=== PATIENT | female | born 1970 | race Native Hawaiian/Other Pacific Islander ===

== ENCOUNTER 2016-10-22 17:48 | Outpatient (CLI) | payer OTHER ==
[~2016-10-22 17:48] MED LIST: CARAFATE1 GM PO; DOXYCYC MONO100 M1 OR; GABA100C2 PO; LORA10TA3 PO; METR250T19 PO; OXYC5TAB53 PO; PANT40TA PO; PERCOCET1 TA4 PO; PHENELX32; POTASSIUM CHLO10 ME2 PO; PROAIR HFA IN; REQUIP1 MG PO; Z-PAK PO
== END 2016-10-22 19:52 | disposition home or self-care (01) ==
LOC: RAD 17:48
DX: M79.671 Pain in right foot (principal)

== ENCOUNTER 2016-11-27 06:57 | Emergency (ER) | payer OTHER ==
[~2016-11-27] VITALS: Ht 172.7 cm; Wt 45.4 kg
[2016-11-27] MEDS ORDERED: TRAM50TA PO (07:06)
[2016-11-27 07:42] LABS: PLATELET COUNT 271 K/uL (152-353)
[2016-11-27 07:59] LABS: POTASSIUM 3.8 mmol/L (3.6-5.2); SODIUM 140 mmol/L (136-145)
[2016-11-27 08:21] VITALS: BP 90/50; TEMP 97.9
== END 2016-11-27 08:23 | disposition home or self-care (01) ==
LOC: ED 06:57
DX: I10 Essential (primary) hypertension (principal); R51 Headache
CPT/HCPCS: 80053; 80307; 81000; 85027; 96372; 99283; G0479; J1885

== ENCOUNTER 2017-02-05 14:53 | Emergency (ER) | payer OTHER ==
[~2017-02-05] VITALS: Ht 172.7 cm; Wt 45.4 kg
[~2017-02-05 14:53] MED LIST changes: +TRAM50TA PO
[2017-02-05 16:05] LABS: PLATELET COUNT 281 K/uL (152-353)
[2017-02-05 16:21] LABS: POTASSIUM 3.1 mmol/L (3.6-5.2); SODIUM 140 mmol/L (136-145)
[2017-02-05 17:30] VITALS: BP 90/54; TEMP 98
== END 2017-02-05 17:30 | disposition home or self-care (01) ==
LOC: ED 14:53
PROVIDERS: Emergency Medicine
DX: I10 Essential (primary) hypertension (principal)
CPT/HCPCS: 36415; 80053; 81000; 85027; 99283

== ENCOUNTER 2017-08-10 19:07 | Emergency (ER) | payer OTHER ==
[~2017-08-10] VITALS: Ht 172.7 cm; Wt 46.3 kg
[2017-08-10 19:20] VITALS: BP 132/79; TEMP 98.6
== END 2017-08-10 19:27 | disposition home or self-care (01) ==
LOC: ED 19:07
DX: K08.89 Other specified disorders of teeth and supporting structures (principal)

== ENCOUNTER 2017-10-06 13:25 | Emergency (ER) | payer OTHER ==
[~2017-10-06] VITALS: Ht 172.7 cm; Wt 46.3 kg
[2017-10-06 13:29] VITALS: TEMP 97.6
[2017-10-06] MEDS ORDERED: TRAM50TA PO (13:40)
[2017-10-06] MEDS ORDERED: GABA300C2 PO (13:40)
[2017-10-06 14:31] LABS: PLATELET COUNT 296 K/uL (152-353)
[2017-10-06 14:48] LABS: PARTIAL THROMBOPLASTIN TIME 24.3 SECONDS (24.5-33.6)
[2017-10-06 17:47] VITALS: BP 174/69
== END 2017-10-06 17:47 | disposition home or self-care (01) ==
LOC: ED 13:25
PROVIDERS: Emergency Medicine
DX: F12.10 Cannabis abuse, uncomplicated (principal); N83.299 Other ovarian cyst, unspecified side; R10.84 Generalized abdominal pain
CPT/HCPCS: 36415; 80053; 80307; 81000; 81025; 82150; 82272; 83690; 85027; 85610; 85730; 96374; 99284; J1885; J2405; Q9963

== ENCOUNTER 2018-04-21 17:38 | Emergency (ER) | payer OTHER ==
[~2018-04-21] VITALS: Ht 175.3 cm; Wt 45.4 kg
[~2018-04-21 17:38] MED LIST changes: +GABA300C2 PO
[2018-04-21 18:48] LABS: PLATELET COUNT 296 K/uL (152-353)
[2018-04-21 18:53] LABS: POTASSIUM 4.3 mmol/L (3.6-5.2)
[2018-04-21 22:07] VITALS: BP 135/74; TEMP 97.5
== END 2018-04-21 22:07 | disposition home or self-care (01) ==
LOC: ED 17:38
DX: R10.13 Epigastric pain (principal); R11.2 Nausea with vomiting, unspecified
CPT/HCPCS: 36415; 80053; 81000; 82150; 83690; 85027; 96361; 96365; 96374; 96375; 96376; 99284; J2175; J2405; J2550; Q9963

== ENCOUNTER 2018-04-25 17:43 | Emergency (ER) | payer OTHER ==
[~2018-04-25] VITALS: Ht 172.7 cm; Wt 43.5 kg
[2018-04-25 18:37] LABS: PLATELET COUNT 278 K/uL (152-353)
[2018-04-25 18:46] LABS: POTASSIUM 3.5 mmol/L (3.6-5.2)
[2018-04-25 20:45] VITALS: BP 128/76; TEMP 98
== END 2018-04-25 20:45 | disposition home or self-care (01) ==
LOC: ED 17:43
DX: R10.13 Epigastric pain (principal); F12.10 Cannabis abuse, uncomplicated
CPT/HCPCS: 80053; 80307; 81000; 85027; 96374; 96375; 99284; J1885; J2550

== ENCOUNTER 2018-04-28 17:46 | Observation (INO) | payer OTHER ==
[~2018-04-28] VITALS: Ht 172.7 cm; Wt 46.1 kg
[2018-04-28 18:39] LABS: PLATELET COUNT 295 K/uL (152-353)
[2018-04-28 18:47] VITALS: BP 153/68; TEMP 98.6; Ht 172.7 cm; Wt 46.1 kg
[2018-04-28 18:53] LABS: POTASSIUM 3.2 mmol/L (3.6-5.2)
[2018-04-29] VITALS: BP 163/93; TEMP 98.5
[2018-04-29 04:00] VITALS: BP 141/72; TEMP 98.1
[2018-04-29 08:17] VITALS: BP 146/82; TEMP 99.3
[2018-04-29 12:17] VITALS: BP 142/80; TEMP 97.7
== END 2018-04-29 14:55 | disposition home or self-care (01) ==
LOC: MED/SURG 17:46
PROVIDERS: ADMIT Student in an Organized Health Care Education/Training Program
PROC: 0FT44ZZ Resection of Gallbladder, Percutaneous Endoscopic Approach (ICD-10-PCS; principal; 2018-04-29)
DX: K82.8 Other specified diseases of gallbladder (principal)
CPT/HCPCS: 80053; 83690; 85027; 96365; 96366; 96374; 96375; 99220; G0378; G0379; J0132; J0330; J1100; J1170; J1644; J1956; J2001; J2175; J2250; J2405; J2550; J2704; J3010; J3490

== ENCOUNTER 2019-02-15 18:05 | Emergency (ER) | payer OTHER ==
[~2019-02-15] VITALS: Ht 172.7 cm; Wt 45.8 kg
[2019-02-15 18:54] VITALS: BP 166/88; TEMP 98
== END 2019-02-15 19:00 | disposition home or self-care (01) ==
LOC: ED 18:05
DX: S50.12XA Contusion of left forearm, initial encounter (principal); W18.39XA Other fall on same level, initial encounter; Y93.89 Activity, other specified; Y92.89 Other specified places as the place of occurrence of the external cause
CPT/HCPCS: 96372; 99283; J1885

== ENCOUNTER 2019-09-12 17:34 | Outpatient (CLI) | payer OTHER | END 2019-09-12 21:54 | disposition home or self-care (01) | LOC: LAB 17:34 | DX: R07.9 Chest pain, unspecified (principal) | CPT/HCPCS: 82550; 82553; 84484 ==

== ENCOUNTER 2019-10-03 10:28 | Outpatient (CLI) | payer OTHER ==
[2019-10-03 11:06] LABS: PLATELET COUNT 336 K/uL (152-353)
[2019-10-03 11:26] LABS: POTASSIUM 3.9 mmol/L (3.6-5.2)
== END 2019-10-03 19:17 | disposition home or self-care (01) ==
LOC: LABW 10:28
PROVIDERS: Internal Medicine Cardiovascular Disease
DX: Z79.899 Other long term (current) drug therapy (principal)
CPT/HCPCS: 36415; 80053; 80061; 85027; 86140

== ENCOUNTER 2019-10-04 13:48 | Outpatient (CLI) | payer OTHER ==
[2019-10-04 14:39] LABS: PLATELET COUNT 304 K/uL (152-353)
[2019-10-04 14:40] LABS: POTASSIUM 4.1 mmol/L (3.6-5.2); SODIUM 141 mmol/L (136-145)
== END 2019-10-04 22:34 | disposition home or self-care (01) ==
LOC: LAB 13:48
PROVIDERS: Nurse Practitioner Family
DX: I10 Essential (primary) hypertension (principal); F17.200 Nicotine dependence, unspecified, uncomplicated; R42 Dizziness and giddiness; R00.0 Tachycardia, unspecified; R07.89 Other chest pain; R53.83 Other fatigue
CPT/HCPCS: 80053; 82550; 82552; 82553; 84484; 85027

== ENCOUNTER 2019-10-11 13:51 | Outpatient (CLI) | payer OTHER | END 2019-10-11 19:23 | disposition home or self-care (01) | LOC: RESP 13:51 | DX: I10 Essential (primary) hypertension (principal); R07.9 Chest pain, unspecified; F17.200 Nicotine dependence, unspecified, uncomplicated; M19.90 Unspecified osteoarthritis, unspecified site | CPT/HCPCS: 93306 ==

== ENCOUNTER 2020-01-17 09:00 | Outpatient (CLI) | payer OTHER | END 2020-01-17 19:45 | disposition home or self-care (01) | LOC: RAD 09:00 | DX: M54.2 Cervicalgia (principal); G56.90 Unspecified mononeuropathy of unspecified upper limb ==

== ENCOUNTER 2021-07-09 12:34 | Emergency (ER) | payer OTHER ==
[~2021-07-09] VITALS: Ht 172.7 cm; Wt 49.0 kg
[2021-07-09 12:40] VITALS: TEMP 98.5
[2021-07-09 13:30] VITALS: BP 142/82
== END 2021-07-09 13:34 | disposition home or self-care (01) ==
LOC: ED 12:34
DX: G43.909 Migraine, unspecified, not intractable, without status migrainosus (principal)
CPT/HCPCS: 96372; 99283; J1200; J1885; J2405

== ENCOUNTER 2021-07-15 17:40 | Emergency (ER) | payer OTHER ==
[~2021-07-15] VITALS: Ht 172.7 cm; Wt 49.0 kg
[2021-07-15 19:22] VITALS: BP 139/97; TEMP 97.8
== END 2021-07-15 19:22 | disposition home or self-care (01) ==
LOC: ED 17:40
DX: G43.909 Migraine, unspecified, not intractable, without status migrainosus (principal)
CPT/HCPCS: 93005; 96372; 99283; J1200; J1885; J2405

== ENCOUNTER 2021-07-17 15:29 | Emergency (ER) | payer OTHER ==
[~2021-07-17] VITALS: Ht 172.7 cm; Wt 49.0 kg
[2021-07-17 16:54] LABS: PLATELET COUNT 275 K/uL (152-353)
[2021-07-17 17:03] LABS: POTASSIUM 3.5 mmol/L (3.6-5.2)
[2021-07-17 21:03] VITALS: BP 135/74; TEMP 98.3
== END 2021-07-17 21:30 | disposition home or self-care (01) ==
LOC: ED 15:29
PROVIDERS: Emergency Medicine Emergency Medical Services
DX: G44.201 Tension-type headache, unspecified, intractable (principal); Z20.822 Contact with and (suspected) exposure to COVID-19
CPT/HCPCS: 36600; 80053; 80307; 81000; 82805; 85027; 86140; 87635; 96360; 96361; 96375; 99284; J1885; J2060; J2405; J3490; U0003

== ENCOUNTER 2021-07-22 15:11 | Emergency (ER) | payer OTHER ==
[~2021-07-22] VITALS: Ht 172.7 cm; Wt 49.0 kg
[2021-07-22 15:22] VITALS: TEMP 98.1
[2021-07-22 16:45] VITALS: BP 108/69
== END 2021-07-22 16:45 | disposition home or self-care (01) ==
LOC: ED 15:11
DX: G43.909 Migraine, unspecified, not intractable, without status migrainosus (principal)
CPT/HCPCS: 96374; 96376; 99284; J1885; J2405

== ENCOUNTER 2021-08-04 09:21 | Outpatient (CLI) | payer OTHER | END 2021-08-04 19:50 | disposition home or self-care (01) | LOC: MRI 09:21 | PROVIDERS: ATTEND Nurse Practitioner Family | DX: G43.909 Migraine, unspecified, not intractable, without status migrainosus (principal); R68.89 Other general symptoms and signs; R93.0 Abnormal findings on diagnostic imaging of skull and head, not elsewhere classified ==

== ENCOUNTER 2022-02-19 10:02 | Outpatient (CLI) | payer OTHER | END 2022-02-19 22:24 | disposition home or self-care (01) | LOC: CT 10:02 | PROVIDERS: ATTEND Nurse Practitioner Family | DX: R10.9 Unspecified abdominal pain (principal); R31.9 Hematuria, unspecified ==

== ENCOUNTER 2022-04-24 18:12 | Emergency (ER) | payer OTHER ==
[~2022-04-24] VITALS: Ht 172.7 cm; Wt 47.6 kg
[2022-04-24 18:20] VITALS: BP 132/59; TEMP 98.9
== END 2022-04-24 19:55 | disposition home or self-care (01) ==
LOC: ED 18:12
DX: S83.8X1A Sprain of other specified parts of right knee, initial encounter (principal); W18.39XA Other fall on same level, initial encounter; Y92.098 Other place in other non-institutional residence as the place of occurrence of the external cause
CPT/HCPCS: 96372; 99283; J1100; J1885

== ENCOUNTER 2022-09-11 16:57 | Emergency (ER) | payer OTHER ==
[~2022-09-11] VITALS: Ht 172.7 cm; Wt 52.2 kg
[2022-09-11 17:02] VITALS: BP 173/98; TEMP 98.4
[2022-09-11 17:56] LABS: PLATELET COUNT 232 K/uL (152-353)
[2022-09-11 18:04] LABS: POTASSIUM 3.7 mmol/L (3.6-5.2)
== END 2022-09-11 19:47 | disposition home or self-care (01) ==
LOC: ED 16:57
PROVIDERS: Family Medicine
DX: J44.9 Chronic obstructive pulmonary disease, unspecified (principal); F17.210 Nicotine dependence, cigarettes, uncomplicated
CPT/HCPCS: 80053; 80307; 81000; 85027; 94664; 96365; 96374; 96375; 99284; J2930

== ENCOUNTER 2023-02-09 14:52 | Outpatient (CLI) | payer OTHER | END 2023-02-09 19:16 | disposition home or self-care (01) | LOC: US 14:52 | PROVIDERS: ATTEND Nurse Practitioner Family | DX: R22.1 Localized swelling, mass and lump, neck (principal); R13.10 Dysphagia, unspecified ==

== ENCOUNTER 2023-02-23 13:58 | Outpatient (CLI) | payer OTHER | END 2023-02-23 20:33 | disposition home or self-care (01) | LOC: MAMMO 13:58 | PROVIDERS: ATTEND Nurse Practitioner Family | DX: N63.0 Unspecified lump in unspecified breast (principal) | CPT/HCPCS: G0279 ==

== ENCOUNTER 2023-02-24 10:18 | Outpatient (CLI) | payer OTHER | END 2023-02-24 19:06 | disposition home or self-care (01) | LOC: CT 10:18 | PROVIDERS: ATTEND Nurse Practitioner Family | DX: R59.0 Localized enlarged lymph nodes (principal); R93.89 Abnormal findings on diagnostic imaging of other specified body structures | CPT/HCPCS: 36415; 82565; 84520; Q9963 ==